=== PATIENT | female | born 1995 | race American Indian/Alaskan Native ===

== ENCOUNTER 2022-03-27 11:48 | Emergency (ER) | payer SELFPAY | END 2022-03-27 17:53 | disposition left against medical advice (07) | LOC: ED 11:48 | DX: O26.891 Other specified pregnancy related conditions, first trimester (principal); R11.0 Nausea; Z3A.13 13 weeks gestation of pregnancy; Z53.21 Procedure and treatment not carried out due to patient leaving prior to being seen by health care provider ==